=== PATIENT | female | born 1980 | race African-American/Black ===

== ENCOUNTER 2017-01-08 05:26 | Inpatient (IN) | payer OTHER ==
[2017-01-08] MEDS ORDERED: Ondansetron HCl/PF 4 MG/2 ML Vial IVP PRN ×3 (05:49→13:25)
[2017-01-08] MEDS ORDERED: Promethazine HCl 25 MG/ML VIAL IM PRN ×2 (05:49→13:25)
[2017-01-08] MEDS ORDERED: Bicitra 30 ML UDCUP PO SCH (05:49)
[2017-01-08] MEDS ORDERED: CEFAZOLIN/Water 2 GM/20 ML SYRINGE SLOW IVP SCH (05:49)
[2017-01-08] MEDS ORDERED: Lactated Ringer's 1,000 ML IV SCH ×2 (05:49→11:37)
[2017-01-08 06:10] VITALS: BMI 38.2
[2017-01-08 06:24] LABS: Mean Platelet Volume 7.5 fL (7.4-10.4); Red Blood Cell (RBC) Count 3.58 mill/uL (4.20-5.40); White Blood Cell (WBC) Count 7.5 thou/uL (4.8-10.8)
[2017-01-08] MEDS ORDERED: Morphine PF 1 MG/ML SYR ONE (07:10)
[2017-01-08] MEDS ORDERED: Ondansetron HCl/PF 4 MG/2 ML Vial ONE (07:11)
[2017-01-08] MEDS ORDERED: PHENYLEPHRINE-NS 100 MCG/ML 10 ML SYRINGE ONE (07:11)
--- NOTE | 2017-01-08 07:41 | PDOC.LDHP ---
Labor and Delivery H&P Chief complaint: scheduled section HPI: Pt is a 36yo @ 39 weeks here for RCS, hx of demise at 28 weeks, hx of prev CS, hx of HSV and Pargard arm IN SITU. Current gestational age (weeks): 39 Due date: 01/15/17 Dating criteria: first trimester ultrasound Grav: 7 Para: 2 OB History Details: 28 weeks IUFD, unknown dx 39 weeks CS FTP EAB x 4 Current complications: other (Paragard in situ) Current medications: pre-dago vitamins, other (ASA, Valtrex) Previous surgical history: low tranverse CS Allergies/Adverse Reactions: Allergies Allergy/AdvReac Type Severity Reaction Status Date / Time No Known Allergies Allergy Verified 01/08/17 05:57 Social history: none - Physical Exam Vital signs reviewed and normal: yes General: breathing through contractions Lungs: nonlabored breathing Abdomen: gravid Extremeties: no edema FHT: category 1 - OB Labs Blood type: O RH: positive Antibody Screen: negative HIV: negative RPR: negative HEPSAg: negative 1 hour GCT: negative GBS: negative Rubella: immune - Assessment L&D Assessment: scheduled repeat section - Plan Plan: admit to L&D, informed consent obtained, anesthesia consult for pain management -: A/P: @ 39 weeks for RCS, declines TOLAC. Hx of HSV w prodromal sx as well today. Paragard arm IN SITU. Plan to OR for RCS, discussed HSV treatment while here, plan for exploration to remove Paragard arm.
[2017-01-08] MEDS ORDERED: Ropivacaine 0.2% 550 ML 750 ML NERVE BLCK SCH (07:45)
[2017-01-08] MEDS ORDERED: Ropivacaine HCl/PF 750 ML in Premix Bag 1 BAG NERVE BLCK SCH (08:00)
[2017-01-08] MEDS ORDERED: Bupivacaine 0.25% HCL 30 ML VIAL ONE (08:10)
[2017-01-08] MEDS ORDERED: Oxytocin 10 UNITS/ML VIAL ONE (08:18)
--- NOTE | 2017-01-08 08:45 | PDOC.OPDEL ---
OB Operative/Delivery Note Delivery Dr/Surgeon: Alberto Assist: Mayda Bermudez MS3 Pre-Delivery Diagnosis: scheduled section Procedure/Post Delivery Dx: repeat low transverse CS Weeks gestation: 39 - Findings A Sex: male Weight: 7 lb 13 oz - 1 min: 9 - 5 min: 9 - Additional Findings/Plan Placenta delivered: manual removal findings: low transverse hysterotomy without extension, normal uterus, normal tubes, normal ovaries, other (Paragard arm inbeded in endometrium of WEN) Post delivery plan: routine recovery
--- NOTE | 2017-01-08 11:06 | PDOC.EVN ---
Event Note - Event Note Event Note: Nursey notifed of pt w prodromal sx, exam done at [facility] request as protocol for management has changed. Exam requested and performed by Dr. Ruiz with report of no active lesions. Dr. Henry notified.
--- NOTE | 2017-01-08 11:08 | OP ---
DATE OF PROCEDURE: 01/08/2017 PREOPERATIVE DIAGNOSES: 1. A 36-year-old G7, P1, 1, 4, 1 with previous section. 2. Declines trial of labor. 3. History of demise at 28 weeks. 4. Advanced maternal age. 5. Paragard intrauterine device arm in situ. POSTOPERATIVE DIAGNOSIS: Status post repeat section. PROCEDURES PERFORMED: Repeat low transverse section and placement of ON-Q dual catheter pump. SURGEON: Hemanth Dominguez D.O. MANGANESE WHEELER: Randi Bermudez M.D. COMPLICATIONS: None. ESTIMATED BLOOD LOSS: 700 mL. FINDINGS: 1. Low transverse hysterotomy without extension. 2. Normal appearing uterus, tubes, and ovaries bilaterally. 3. Paragard arm imbedded into the endometrium of the lower uterine segment identified and removed. 4. Vigorous male infant, Apgars 9 and 9, weight 7 pounds 13 ounces to nursery. 5. Surgical sites hemostatic. DESCRIPTION OF PROCEDURE: The patient was taken back to the OR with IV fluids running. Once she was in the OR, spinal anesthesia was obtained. The patient was then placed in dorsal supine position with a left lateral tilt. The abdomen was prepped and draped in normal fashion for section. Anesthesia was tested and found to be adequate. Surgeons were scrubbed in. A Pfannenstiel skin incision was made with the scalpel. Skin incision was carried down through the subcutaneous tissue to the fascia with the scalpel as well as Bovie cauterization. Once the fascia was reached, it was incised in the midline and extended superior laterally using curved Doan scissors. Freida clamps were placed at the superior border of the fascia, which was then bluntly dissected off the rectus abdominis muscles in a cephalad direction to allow for adequate space for delivery of the . In similar fashion, Freida clamps were placed at the inferior border of the fascia, which was dissected down towards the pubic symphysis. The rectus muscles were in the midline. Some mild adhesive disease was noted between the rectus muscles and peritoneum and omentum in the midline. This was completed with blunt dissection. The rectus muscles were then stretched laterally. An Brendon O retractor was placed into the peritoneal cavity for retraction, visualization and protection of the wound. A bladder flap was created using Metzenbaum scissors and the bladder was pushed away from the planned hysterotomy site. A low transverse hysterotomy was made with the scalpel. The intrauterine cavity was bluntly entered and stretched superolaterally using maneuver. Clear amniotic fluid was noted. The was delivered without difficulty through the incision. The cord was doubly clamped and cut and the was handed off to special care nurses in attendance. The lower uterine segment was digitally palpated with inside the uterine cavity and the ParaGard was noted. It was then dissected out of the endometrium and removed from the surgical field. The placenta was then delivered. The uterus was massaged to firm and cleared of clot and debris. Excess membranes were removed with curettage with dry sponge. The hysterotomy was then closed using Monocryl suture in a running locked fashion. An additional suture was placed in the right corner for hemostasis. Once the hysterotomy was noted to be hemostatic, the hysterotomy and pericolic gutters were irrigated and suctioned dry. The hysterotomy was inspected again and noted to be hemostatic. The Brendon O retractor was removed from the abdominal cavity. The muscle belly, fascia and peritoneum were inspected with no areas of bleeding noted. The peritoneum was reapproximated with chromic suture. Freida clamps were placed at the superior border of the fascia, which was then tented off the abdomen for placement of the ON-Q pump catheters. These were directed under direct visualization through the skin, subcutaneous tissue and fascia. The catheter tips were placed between the fascia and rectus muscles and corner of the incisions. After the 2 catheters were placed, the fascia was closed with PDS suture in a running fashion. The subcutaneous tissue was then irrigated and dried. Any small areas of bleeding were controlled with Bovie cauterization. Chromic suture was used to reapproximate the subcutaneous tissue. The subcuticular layer was closed with 4 -0 Monocryl and the incision was dressed with Dermabond dressing. The ON-Q pumps were primed with 0.25% Marcaine. The incision was dressed with a sterile dressing. The uterus was noted to be firm. The patient was then taken to the recovery room in good condition. Postoperative plans include Valtrex 500 mg b.i.d. for prodromal symptoms and the nursery was notified as well. STAN
[2017-01-08] MEDS ORDERED: Ferrous Sulfate 325 MG TAB PO SCH ×2 (11:37→12:30)
[2017-01-08] MEDS ORDERED: LR w/ Pitocin 40 units/1000 ML BAG IV SCH (11:37)
[2017-01-08] MEDS ORDERED: Bisacodyl 10 MG SUPP PR PRN (11:37)
[2017-01-08] MEDS ORDERED: Adacel (T-DAP) 0.5 ML VIAL IM ONE (11:37)
[2017-01-08] MEDS ORDERED: Lanolin Ointment 7 GM TUBE TOP PRN (11:37)
[2017-01-08] MEDS ORDERED: Acetaminophen/Codeine 30-300mg Tablet PO PRN ×2 (11:37)
[2017-01-08] MEDS ORDERED: Meperidine HCl/PF 25 MG/ML VIAL IM PRN (11:37)
[2017-01-08] MEDS ORDERED: diphenhydrAMINE 25 MG CAP PO PRN (11:37)
[2017-01-08] MEDS ORDERED: Ketorolac Tromethamine 30 MG/ML VIAL IVP PRN (13:25)
[2017-01-08] MEDS ORDERED: Naloxone HCl 0.4 mg/ml Vial IVP PRN ×2 (13:25)
[2017-01-08] MEDS ORDERED: diphenhydrAMINE 50 MG/ML VIAL IVP PRN (13:25)
[2017-01-08] MEDS ORDERED: Eucerin (Mineral Oil/Petrolatum,White) 30 gm Jar TOP PRN (13:25)
[2017-01-08] MEDS ORDERED: Promethazine HCl 25 MG SUPP PR PRN (13:25)
[2017-01-08] MEDS ORDERED: Naloxone HCl 0.4 mg/ml Vial IV PRN (13:25)
[2017-01-08] MEDS ORDERED: Communication Order-Pharmacy FS SCH (13:30)
[2017-01-08] MEDS: Ibuprofen 800 MG TAB PO SCH ×2 (14:04→21:43)
[2017-01-08] MEDS: Ferrous Sulfate 325 MG TAB PO SCH (19:05)
[2017-01-08] MEDS: Docusate (Surfak) 240 MG CAP PO SCH (21:42)
[2017-01-09] MEDS: Simethicone Chewable 80 MG TAB PO PRN ×2 (00:28→05:59)
[2017-01-09] MEDS ORDERED: Acetaminophen/Codeine 30-300mg Tablet PO PRN (01:30)
[2017-01-09] MEDS ORDERED: Meperidine HCl/PF 25 MG/ML VIAL IM PRN (01:30)
[2017-01-09] MEDS: Acetaminophen/Codeine 30-300mg Tablet PO PRN (01:36)
[2017-01-09 05:29] LABS: Mean Platelet Volume 7.3 fL (7.4-10.4); Red Blood Cell (RBC) Count 3.35 mill/uL (4.20-5.40); White Blood Cell (WBC) Count 8.8 thou/uL (4.8-10.8)
[2017-01-09] MEDS: Ibuprofen 800 MG TAB PO SCH ×3 (05:59→21:52)
[2017-01-09] MEDS: Docusate (Surfak) 240 MG CAP PO SCH ×2 (09:20→21:52)
[2017-01-09] MEDS: Prenatal Vitamin 1 TAB PO SCH (09:20)
[2017-01-09] MEDS: Ferrous Sulfate 325 MG TAB PO SCH ×2 (09:20→22:00)
[2017-01-10] MEDS: Ibuprofen 800 MG TAB PO SCH ×3 (06:20→21:20)
[2017-01-10] MEDS: Ferrous Sulfate 325 MG TAB PO SCH ×2 (09:36→21:21)
[2017-01-10] MEDS: Docusate (Surfak) 240 MG CAP PO SCH ×2 (09:39→21:20)
[2017-01-10] MEDS: Prenatal Vitamin 1 TAB PO SCH (09:39)
--- NOTE | 2017-01-10 10:28 | DIS ---
DATE OF ADMISSION: 01/08/2017 DATE OF DISCHARGE: 01/10/2017 IMPRESSION: 1. A 39-week intrauterine . 2. Desires repeat section. 3. History of herpes simplex virus with prodromal symptoms 4. Paragard arm in situ. PROCEDURES PERFORMED: 1. Repeat section. 2. Placement of ON-Q catheter pump removal of Paragard remnant POSTOPERATIVE COURSE: The patient is doing well, tolerating p.o., plans on both breast and bottle feeding. She has normal lochia and excellent pain control. PHYSICAL EXAMINATION: VITAL SIGNS: Vitals within normal limits. The patient is afebrile. GENERAL: Nontoxic appearing female in no acute distress. ABDOMEN: Soft, nontender, nondistended, no rebound, no guarding. ON-Q pumps are in place. ASSESSMENT AND PLAN: Postoperative day #2, status post repeat section , doing well, has had a bowel movement, passing gas, tolerating p.o., excellent pain control. The patient will be discharged home. She has already been given instructions on how to remove the ON-Q pump when it runs out. STAN
[2017-01-10] MEDS: Acetaminophen/Codeine 30-300mg Tablet PO PRN (22:24)
[2017-01-11] MEDS: Ibuprofen 800 MG TAB PO SCH (05:06)
[2017-01-11 08:51] VITALS: BP 126/76; TEMP 98.6
[2017-01-11] MEDS: Prenatal Vitamin 1 TAB PO SCH (09:18)
[2017-01-11] MEDS: Docusate (Surfak) 240 MG CAP PO SCH (09:18)
[2017-01-11] MEDS: Ferrous Sulfate 325 MG TAB PO SCH (09:19)
== END 2017-01-11 10:55 | disposition home or self-care (01) | DRG 765 ==
LOC: L&D 05:26 → 3SW 11:02
PROVIDERS: ADMIT Obstetrics & Gynecology; ATTEND Obstetrics & Gynecology
PROC: 10D00Z1 Extraction of Products of Conception, Low, Open Approach (ICD-10-PCS; principal; 2017-01-08)
PROC: 0UPD0HZ Removal of Contraceptive Device from Uterus and Cervix, Open Approach (ICD-10-PCS; 2017-01-08)
PROC: 0JH83VZ Insertion of Infusion Pump into Abdomen Subcutaneous Tissue and Fascia, Percutaneous Approach (ICD-10-PCS; 2017-01-08)
DX: O82 Encounter for cesarean delivery without indication (principal); O98.52 Other viral diseases complicating childbirth; Z37.0 Single live birth; Z3A.39 39 weeks gestation of pregnancy; B00.9 Herpesviral infection, unspecified
CPT/HCPCS: 36415; 85027; 86780; 86850; 86900; 86901; 87340; J1885; J2274; J2310; J2405; J2590; J2795; S0020

== ENCOUNTER 2022-12-19 11:39 | Outpatient (CLI) | payer BC | END 2022-12-19 11:40 | disposition home or self-care (01) | LOC: BICRAD 11:39 | PROVIDERS: ATTEND Family Medicine | DX: M79.671 Pain in right foot (principal); M89.8X7 Other specified disorders of bone, ankle and foot ==

== ENCOUNTER 2023-07-17 10:32 | Outpatient (CLI) | payer OTHER ==
[2023-07-17 11:52] LABS: #Basophils 0.02 10x3/uL (0.0-0.2); #Eosinphils 0.06 10x3/uL (0.0-0.5); #Monocytes 0.47 10x3/uL (0.0-1.1); #Neutrophils 2.14 10x3/uL (1.5-8.4); %Basophils 0.5 % (0.0-2.0); %Eosinophils 1.4 % (0.0-6.0); %Lymphocytes 38.8 % (18.0-47.0); %Monocytes 10.6 % (0.0-10.0); %Neutrophils 48.2 % (40.0-75.0); Hematocrit 37.3 % (34.9-44.5); Hemoglobin 12.8 g/dL (12.0-15.5); Mean Corpuscular HGB CONC 34.3 g/dL (32.0-36.0); Mean Corpuscular Hemoglobin 31.8 pg (27.0-33.0); Mean Corpuscular Volume 92.6 fl (81.6-98.3); Mean Platelet Volume 9.9 fl (7.4-10.4); Platelet Count 297 10x3/uL (150-450); RBC Distribution Width 11.9 % (11.5-14.5); Red Blood Cell (RBC) Count 4.03 10x6/uL (3.90-5.03); White Blood Cell (WBC) Count 4.4 10x3/uL (3.5-10.5)
[2023-07-17 12:22] LABS: BHCG - Serum Negative (NEGATIVE); Pregs Control Background? CLEAR/WHITE (CLR/WHITE); Pregs Control Bar Appear? YES (CONTROL BAR)
[2023-07-17 12:27] LABS: ALT (SGPT) 11 U/L (8-55); AST (SGOT) 13 U/L (5-34); Alkaline Phosphatase 74 U/L (40-110); Anion Gap 13 mmol/L (10-20); BUN (Urea Nitrogen) 9 mg/dL (7.0-18.7); Bilirubin, Total 0.6 mg/dL (0.2-1.2); Calc. Creatinine Clearance 0 mL/min (70-130); Calcium 9.2 mg/dL (7.8-10.44); Carbon Dioxide 26 mmol/L (22-29); Chloride 105 mmol/L (98-107); Estimated GFR 110; Globulin 3.3 g/dL (2.4-3.5); Glucose 84 mg/dL (70-105); Potassium 4.3 mmol/L (3.5-5.1); Protein, Total 7.3 g/dL (6.0-8.3); Sodium 140 mmol/L (136-145)
== END 2023-07-17 10:33 | disposition home or self-care (01) ==
LOC: LABBT 10:32
PROVIDERS: ATTEND Surgery
DX: Z01.812 Encounter for preprocedural laboratory examination (principal); K60.1 Chronic anal fissure
CPT/HCPCS: 80053; 84703; 85025